=== PATIENT | male | born 1960 | race Caucasian/White ===

== ENCOUNTER → 2016-05-11 | Outpatient (CLI) | payer MEDICAID ==
--- NOTE | 2016-05-11 17:29 | DX ---
Right foot, 3 views History: Right foot pain. G57.61. Findings: Previous right first metatarsal osteotomy with a vertical screw noted. Moderate osteoarthri tis in the right first metatarsophalangeal joint with moderate joint space narrowing and predominantl y lateral femoral head and great toe osteophytes. No destructive osseous lesions. Second through fifth metatarsophalangeal joints demonstrate no significant degenerative changes. Spec ifically, the third toe and third metatarsal demonstrate no destructive osseous lesions or erosions. Impression: 1. Hallux valgus first metatarsophalangeal joint with moderate osteoarthritis and previous first meta tarsal head osteotomy. 2. No significant degenerative changes or erosions involving the second through fifth metatarsophalan geal joints or toes.
== END ==
LOC: FIMAGING 13:15
PROVIDERS: ATTEND Podiatrist Foot & Ankle Surgery
DX: M20.11 Hallux valgus (acquired), right foot (principal); M19.071 Primary osteoarthritis, right ankle and foot

== ENCOUNTER → 2016-10-01 | Outpatient (CLI) | payer MEDICAID | LOC: BMCIMAGING 08:15 | PROVIDERS: ATTEND Orthopaedic Surgery | DX: M25.551 Pain in right hip (principal) ==